=== PATIENT | female | born 1955 | race Hispanic/Latino ===

== ENCOUNTER 2016-12-15 10:14 | Inpatient (IN) | payer MEDICAID ==
--- NOTE | 2016-12-15 11:20 | C.PDOC ---
History Of Present Illness 61-year-old female, presents to the emergency department with complaints of large bump around anus for 10 days growing in size and painful. She was seen by Dr Rojas few days ago and told to see Dr Cifuentes. She states by Dr Cifuentes sent her to ED for possible surgery, was instructed to not eat after midnight and present to ER in the morning. Time Seen by Provider: 12/15/16 11:08 Chief Complaint (Nursing): Medical Clearance Past Medical History Vital Signs: Last Vital Signs Temp 97 F L 12/15/16 14:57 Pulse 78 12/15/16 14:57 Resp 9 L 12/15/16 14:57 BP 119/57 L 12/15/16 14:57 Pulse Ox 97 12/15/16 14:57 - Medical History PMH: Diabetes, HTN, Hypercholesterolemia Surgical History: Coronary Stent Family History: States: Unknown Family Hx Review Of Systems Except As Marked, All Systems Reviewed And Found Negative. Constitutional: Negative for: Fever, Chills Cardiovascular: Negative for: Chest Pain Respiratory: Negative for: Shortness of Breath Gastrointestinal: Negative for: Nausea, Vomiting Physical Exam - Physical Exam Appears: Non-toxic, No Acute Distress, Other (anxious) Skin: Warm, Dry, No Rash Oral Mucosa: Moist Lips: Normal Appearing Neck: Normal ROM Cardiovascular: Rhythm Regular, No Murmur Respiratory: Normal Breath Sounds, No Accessory Muscle Use Gastrointestinal/Abdominal: Soft, No Tenderness Rectal: Other (1x2cm tender erythematous fluctuant mass to left perianal region with surrounding swelling, no blood or discharge. ) Extremity: Normal ROM ED Course And Treatment - Laboratory Results Result Diagrams: 12/15/16 11:42 12/15/16 11:42 O2 Sat by Pulse Oximetry: 100 Medical Decision Making Medical Decision Making: Impression rectal mass Plan: * CMP * CBC, PTT, PT * Ciprofloxacin, Morphine, Metronidazole * Blood/Urine Culture * Urinalysis Reassess and Disposition Dr Cifuentes evaluates patient in the ED and requests admission to DR Matta service and to order antibiotics Patient states she is available to Brandie Murphy ordered Contact Dr Rojas and discuss case and accepts admission Disposition - Disposition Disposition: HOSPITALIZED Disposition Time: 12:29 Condition: STABLE - POA Present On Arrival: None - Clinical Impression Clinical Impression: Sejal-rectal abscess Decision To Admit - Pt Status Changed To: Hospital Disposition Of: Inpatient - Admit Certification Admit to Inpatient:: After my assessment, the patient will require hospitalization for at least two midnights. This is because of the severity of symptoms shown, intensity of services needed, and/or the medical risk in this patient being treated as an outpatient. - InPatient: Physician Admission Certification: I certify that this patient requires 2 or more midnights of care for the following reason:: Patient with perirectal abscess and will need surgical consult with Dr Cifuentes - . Bed Request Type: Regular Admitting Physician: Cisco Rojas Patient Diagnosis: Sejal-rectal abscess
[2016-12-15 11:49] LABS: BASO % 0.6 % (0.0-2.0); EOS # 0.2 K/uL (0.0-0.7); EOS % 3.5 % (0.0-4.0); HEMATOCRIT 38.7 % (34.0-47.0); LYMPH # 2.2 K/uL (1.0-4.3); MEAN CELL VOLUME 91.2 fL (81.0-99.0); MEAN PLATELET VOLUME 7.9 fL (7.2-11.7); MONO # 0.5 K/uL (0.0-0.8); MONO % 7.9 % (0.0-10.0); RED CELL DISTRIBUTION WIDTH 13.3 % (11.5-14.5); WHITE BLOOD COUNT 5.9 K/uL (4.8-10.8)
[2016-12-15 11:57] LABS: CHLORIDE 101 mmol/L (98-107); POTASSIUM 3.9 mmol/L (3.6-5.2); SODIUM 137 mmol/L (132-148)
[2016-12-15 11:59] LABS: GFR AFRICAN-AMERICAN > 60
[2016-12-15 12:00] LABS: ALB/GLOB RATIO 1.1 (1.0-2.1); ALKALINE PHOSPHATASE 58 U/L (38-126); ALT/SGPT 41 U/L (9-52); AST/SGOT 31 U/L (14-36); BILIRUBIN,TOTAL 0.6 mg/dL (0.2-1.3); BLOOD UREA NITROGEN 16 mg/dL (7-17); CARBON DIOXIDE 24 mmol/L (22-30); GLUCOSE,RANDOM 148 mg/dL (65-105); TOTAL PROTEIN 7.8 g/dL (6.3-8.3)
[2016-12-15] MEDS ORDERED: Ciprofloxacin 400mg/200ml D5W 400 MG/200 ML BAG IVPB STA (12:16)
[2016-12-15] MEDS ORDERED: metroNIDAZOLE IV 500 mg/100 ml 500 MG/100 ML BAG IVPB STA (12:16)
[2016-12-15] MEDS ORDERED: metroNIDAZOLE IV 500 mg/100 ml 500 MG/100 ML BAG ONE (12:29)
[2016-12-15] MEDS ORDERED: Ciprofloxacin 400mg/200ml D5W 0 MG/0 ML BAG IVPB ONE (12:30)
[2016-12-15 12:41] LABS: RBC URINE < 1 /hpf (0-3); URINE BILIRUBIN NEGATIVE (NEGATIVE); URINE BLOOD NEGATIVE (NEGATIVE); URINE COLOR Yellow (YELLOW); URINE GLUCOSE (UA) 1+ mg/dL (Normal); URINE KETONE NEGATIVE (NEGATIVE); URINE LEUKOCYTE ESTERASE NEG Leu/uL (Negative); URINE PROTEIN NEGATIVE (NEGATIVE); URINE UROBILINOGEN NORMAL mg/dL (0.2-1.0); WBC URINE 1 /hpf (0-5)
[2016-12-15] MEDS ORDERED: Lactated Ringer's 1,000 ML IV ONE (14:19)
[2016-12-15] MEDS ORDERED: Propofol 10 mg/ml Inj (20 ML) ONE (14:20)
[2016-12-15] MEDS ORDERED: Midazolam 2 MG/2 ML VIAL ONE (14:20)
[2016-12-15] MEDS ORDERED: HYDROmorphone 0.5 mg/0.5 ml ISec IVP PRN (14:56)
--- NOTE | 2016-12-15 16:34 | OP ---
PROCEDURE DATE: 12/15/2016 PREOPERATIVE DIAGNOSIS: Rectal abscess with fistula. POSTOPERATIVE DIAGNOSIS: Rectal abscess with fistula. PROCEDURE PERFORMED: Incision and drainage of perirectal abscess with fistulotomy. SURGEON: Albert Cifuentes MD ANESTHESIA: General. ESTIMATED BLOOD LOSS: 30 mL. POSTOPERATIVE CONDITION: Stable. INDICATIONS FOR SURGERY: A 61-year-old female who presents with a rectal abscess and fistula, who wa s taken to the OR the day of admission for drainage. GROSS FINDINGS: There was a fistula at the 5 o'clock level which extended into the midline of the re ctum consistent with Goodsall's rule. It extended somewhat proximally into the pelvis and the draina ge was extensive and involved the pelvic drainage also. PROCEDURE: The patient taken to the operating room. General anesthesia administered. He was placed in lithotomy position. The rectal area was prepped and draped. A probe was placed through the recta l fistula into the midline posteriorly. The anus and the overlying tissue was divided. Pus was drai frantz and cultured. A pocket near the ischiorectal area was also drained in the pelvis. The wound was then irrigated with copious amounts of saline solution. A persistently bleeding rectal blood vessel was repaired. A partial tissue transfer closure was performed and the central portion was packed op en with saline gauze. The patient tolerated procedure well, returned to recovery room in stable cond ition. Albert Cifuentes MD cc: [id number] TT: 12/15/2016 16:33:38 sn
[2016-12-15 17:01] VITALS: RESP 20
[2016-12-15] MEDS: Lactated Ringer's 1,000 ML IV SCH (18:34)
[2016-12-15] MEDS: (Novolog) Insulin Aspart, Recombinant 100 u/ml 10 ml vial SC SCH (22:19)
[2016-12-15] MEDS: Clindamycin 600mg/50ml D5W 600 MG/50 ML VIAL IVPB SCH (22:28)
[2016-12-15] MEDS: Oxycodone/Acetaminophen 5/325 mg Tab PO PRN (23:00)
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
[2016-12-16] MEDS: Lactated Ringer's 1,000 ML IV SCH ×3 (05:00→14:30)
[2016-12-16] MEDS: Clindamycin 600mg/50ml D5W 600 MG/50 ML VIAL IVPB SCH ×3 (05:34→22:39)
[2016-12-16] MEDS: Oxycodone/Acetaminophen 5/325 mg Tab PO PRN (06:29)
[2016-12-16] MEDS: Enoxaparin 40 mg Syringe SC SCH (09:45)
[2016-12-16] MEDS: (Novolog) Insulin Aspart, Recombinant 100 u/ml 10 ml vial SC SCH ×4 (09:48→22:52)
--- NOTE | 2016-12-16 23:35 | CP.PCM.PN ---
Subjective - Date & Time of Evaluation Date of Evaluation: 12/16/16 Time of Evaluation: 21:00 - Subjective Subjective: Pt seen & examined, s/p I and D of rectal abscess, comlaiing of constipation, is feeling better Objective - Vital Signs/Intake and Output Vital Signs (last 24 hours): Temp Pulse Resp BP Pulse Ox 98.2 F 74 20 113/71 95 12/16/16 15:53 12/16/16 15:53 12/16/16 15:53 12/16/16 15:53 12/16/16 15:53 Intake and Output: 12/16/16 12/17/16 18:59 06:59 Intake Total 800 Balance 800 - Medications Medications: Current Medications Alprazolam (Xanax) 1 mg PO TID [facility] Last Admin: 12/16/16 22:51 Dose: 1 mg Aspirin (Aspirin Chewable) 81 mg PO [facility] Last Admin: 12/16/16 22:40 Dose: 81 mg Clopidogrel Bisulfate (Plavix) 75 mg PO DAILY [facility] Last Admin: 12/16/16 09:44 Dose: 75 mg Ezetimibe (Zetia) 10 mg PO [facility] Last Admin: 12/16/16 22:40 Dose: 10 mg Enoxaparin Sodium (Lovenox) 40 mg SC DAILY [facility] Last Admin: 12/16/16 09:45 Dose: 40 mg Gabapentin (Neurontin) 300 mg PO TID [facility] Last Admin: 12/16/16 19:06 Dose: 300 mg Clindamycin Phosphate (Cleocin) 600 mg in 50 mls @ 100 mls/hr IVPB Q8H [facility] Last Admin: 12/16/16 22:39 Dose: 100 mls/hr Lactated Ringer's (Lactated Ringer's) 1,000 mls @ 100 mls/hr IV .Q10H [facility] Last Admin: 12/16/16 14:30 Dose: Not Given Insulin Aspart (Novolog) 0 unit SC [facility] PRN Reason: Protocol Last Admin: 12/16/16 22:52 Dose: Not Given Lactulose (Enulose) 20 gm PO [facility] Last Admin: 12/16/16 22:39 Dose: 20 gm Lisinopril (Zestril) 5 mg PO BID [facility] Last Admin: 12/16/16 22:52 Dose: 5 mg Metformin HCl (Glucophage) 500 mg PO BID [facility] Last Admin: 12/16/16 19:07 Dose: 500 mg Ondansetron HCl (Zofran Inj) 4 mg IVP ONCE PRN PRN Reason: nausea Last Admin: 12/15/16 16:11 Dose: 4 mg Oxycodone/Acetaminophen (Percocet 5/325 Mg Tab) 1 tab PO Q4H PRN PRN Reason: Pain, moderate (4-7) Stop: 12/18/16 20:36 Last Admin: 12/16/16 06:29 Dose: 1 tab Pneumococcal Polyvalent Vaccine (Pneumovax 23 Vaccine) 0.5 ml IM .ONCE ONE Stop: 12/17/16 10:01 Tramadol HCl (Ultram) 50 mg PO TID [facility] Last Admin: 12/16/16 19:09 Dose: 50 mg - Labs Labs: PT 11.5 SECONDS (9.7-12.2) 12/15/16 11:42 INR 1.0 12/15/16 11:42 APTT 30 SECONDS (21-34) 12/15/16 11:42 - Constitutional Appears: No Acute Distress - Eye Exam Eye Exam: EOMI, Normal appearance, PERRL Pupil Exam: NORMAL ACCOMODATION, PERRL - ENT Exam ENT Exam: Mucous Membranes Moist, Normal Exam - Cardiovascular Exam Cardiovascular Exam: REGULAR RHYTHM, +S1, +S2. absent: Murmur - GI/Abdominal Exam GI & Abdominal Exam: Soft, Normal Bowel Sounds. absent: Tenderness - Rectal Exam Rectal Exam: Deferred - Neurological Exam Neurological Exam: Alert, Awake, CN II-XII Intact, Normal Gait, Oriented x3 Assessment and Plan (1) Constipation Assessment & Plan: lactulose Status: Acute (2) Diabetes Status: Acute (3) HTN (hypertension) Status: Acute (4) Sejal-rectal abscess Assessment & Plan: s/p I and D Status: Acute
[2016-12-17] MEDS: Lactated Ringer's 1,000 ML IV SCH (00:30)
[2016-12-17 01:45] VITALS: O2SAT 96
[2016-12-17] MEDS: Clindamycin 600mg/50ml D5W 600 MG/50 ML VIAL IVPB SCH (05:39)
[2016-12-17] MEDS: (Novolog) Insulin Aspart, Recombinant 100 u/ml 10 ml vial SC SCH ×2 (08:28→12:30)
[2016-12-17 08:31] VITALS: BP 101/59; PULSE 68; TEMP 98
[2016-12-17] MEDS ORDERED: Pneumococcal 23-Valent Vaccine IM ONE (10:00)
[2016-12-17] MEDS: Enoxaparin 40 mg Syringe SC SCH (10:15)
--- NOTE | 2016-12-17 17:38 | CP.PCM.PN ---
Subjective - Date & Time of Evaluation Date of Evaluation: 12/17/16 Time of Evaluation: 11:00 - Subjective Subjective: Alert, oriented, NAD. Objective - Vital Signs/Intake and Output Vital Signs (last 24 hours): Temp Pulse Resp BP Pulse Ox 98 F 68 20 101/59 L 96 12/17/16 08:27 12/17/16 08:27 12/17/16 08:27 12/17/16 08:27 12/17/16 08:27 Intake and Output: 12/17/16 12/17/16 06:59 18:59 Intake Total 250 Balance 250 - Medications Medications: Current Medications Alprazolam (Xanax) 1 mg PO TID [facility] Last Admin: 12/17/16 10:20 Dose: 1 mg Aspirin (Aspirin Chewable) 81 mg PO [facility] Last Admin: 12/16/16 22:40 Dose: 81 mg Clopidogrel Bisulfate (Plavix) 75 mg PO DAILY [facility] Last Admin: 12/17/16 10:15 Dose: 75 mg Ezetimibe (Zetia) 10 mg PO [facility] Last Admin: 12/16/16 22:40 Dose: 10 mg Enoxaparin Sodium (Lovenox) 40 mg SC DAILY [facility] Last Admin: 12/17/16 10:15 Dose: 40 mg Gabapentin (Neurontin) 300 mg PO TID [facility] Last Admin: 12/17/16 10:14 Dose: 300 mg Clindamycin Phosphate (Cleocin) 600 mg in 50 mls @ 100 mls/hr IVPB Q8H [facility] Last Admin: 12/17/16 05:39 Dose: 100 mls/hr Lactated Ringer's (Lactated Ringer's) 1,000 mls @ 100 mls/hr IV .Q10H [facility] Last Admin: 12/17/16 00:30 Dose: Not Given Insulin Aspart (Novolog) 0 unit SC [facility] PRN Reason: Protocol Last Admin: 12/17/16 12:30 Dose: Not Given Lactulose (Enulose) 20 gm PO [facility] Last Admin: 12/16/16 22:39 Dose: 20 gm Lisinopril (Zestril) 5 mg PO BID [facility] Last Admin: 12/17/16 10:15 Dose: 5 mg Metformin HCl (Glucophage) 500 mg PO BID [facility] Last Admin: 12/17/16 10:15 Dose: 500 mg Ondansetron HCl (Zofran Inj) 4 mg IVP ONCE PRN PRN Reason: nausea Last Admin: 12/15/16 16:11 Dose: 4 mg Oxycodone/Acetaminophen (Percocet 5/325 Mg Tab) 1 tab PO Q4H PRN PRN Reason: Pain, moderate (4-7) Stop: 12/18/16 20:36 Last Admin: 12/16/16 06:29 Dose: 1 tab Tramadol HCl (Ultram) 50 mg PO TID [facility] Last Admin: 12/17/16 10:20 Dose: 50 mg - Labs Labs: PT 11.5 SECONDS (9.7-12.2) 12/15/16 11:42 INR 1.0 12/15/16 11:42 APTT 30 SECONDS (21-34) 12/15/16 11:42 Assessment and Plan - Assessment and Plan (Free Text) Assessment: Patient is seen and examined. Ambulating, alert, orientedx3. Cleared by surgery. Instructed for sitz bath and po antibiotics to continue as ordered. [facility], home care to f/u on the wound care. D/W DR Rojas, agreed with the plan.
--- NOTE | 2016-12-17 23:04 | CP.PCM.DIS ---
Provider - Provider Date of Admission: 12/15/16 12:29 Attending physician: Cisco Rojas MD Time Spent in preparation of Discharge (in minutes): 24 Diagnosis - Discharge Diagnosis (1) Constipation Status: Acute (2) Diabetes Status: Acute (3) HTN (hypertension) Status: Acute (4) Sejal-rectal abscess Status: Acute Hospital Course - Lab Results Lab Results: Micro Results 12/15/16 Unknown Rectum Gram Stain - Final 12/15/16 Unknown Rectum Wound Culture - Preliminary No growth. Most Recent Lab Values WBC 5.9 K/uL (4.8-10.8) 12/15/16 11:42 RBC 4.24 Mil/uL (3.80-5.20) 12/15/16 11:42 Hgb 13.1 g/dL (11.0-16.0) 12/15/16 11:42 Hct 38.7 % (34.0-47.0) 12/15/16 11:42 MCV 91.2 fL (81.0-99.0) 12/15/16 11:42 MCH 31.0 pg (27.0-31.0) 12/15/16 11:42 MCHC 34.0 g/dL (33.0-37.0) 12/15/16 11:42 RDW 13.3 % (11.5-14.5) 12/15/16 11:42 Plt Count 252 K/uL (130-400) 12/15/16 11:42 MPV 7.9 fL (7.2-11.7) 12/15/16 11:42 Neut % (Auto) 51.0 % (50.0-75.0) 12/15/16 11:42 Lymph % (Auto) 37.0 % (20.0-40.0) 12/15/16 11:42 Dunn % (Auto) 7.9 % (0.0-10.0) 12/15/16 11:42 Eos % (Auto) 3.5 % (0.0-4.0) 12/15/16 11:42 Baso % (Auto) 0.6 % (0.0-2.0) 12/15/16 11:42 Neut # 3.0 K/uL (1.8-7.0) 12/15/16 11:42 Lymph # 2.2 K/uL (1.0-4.3) 12/15/16 11:42 Dunn # 0.5 K/uL (0.0-0.8) 12/15/16 11:42 Eos # 0.2 K/uL (0.0-0.7) 12/15/16 11:42 Baso # 0.0 K/uL (0.0-0.2) 12/15/16 11:42 PT 11.5 SECONDS (9.7-12.2) 12/15/16 11:42 INR 1.0 12/15/16 11:42 APTT 30 SECONDS (21-34) 12/15/16 11:42 Sodium 137 mmol/L (132-148) 12/15/16 11:42 Potassium 3.9 mmol/L (3.6-5.2) 12/15/16 11:42 Chloride 101 mmol/L (98-107) 12/15/16 11:42 Carbon Dioxide 24 mmol/L (22-30) 12/15/16 11:42 Anion Gap 16 (10-20) 12/15/16 11:42 BUN 16 mg/dL (7-17) 12/15/16 11:42 Creatinine 0.5 MG/DL (0.7-1.2) L 12/15/16 11:42 Est GFR ( Amer) > 60 12/15/16 11:42 Est GFR (Non-Af Amer) > 60 12/15/16 11:42 POC Glucose (mg/dL) 133 mg/dL (65-110) H 12/17/16 12:12 Random Glucose 148 mg/dL (65-105) H 12/15/16 11:42 Calcium 9.0 mg/dl (8.6-10.4) 12/15/16 11:42 Total Bilirubin 0.6 mg/dL (0.2-1.3) 12/15/16 11:42 AST 31 U/L (14-36) 12/15/16 11:42 ALT 41 U/L (9-52) 12/15/16 11:42 Alkaline Phosphatase 58 U/L (38-126) 12/15/16 11:42 Total Protein 7.8 g/dL (6.3-8.3) 12/15/16 11:42 Albumin 4.0 g/dL (3.5-5.0) 12/15/16 11:42 Globulin 3.8 gm/dL (2.2-3.9) 12/15/16 11:42 Albumin/Globulin Ratio 1.1 (1.0-2.1) 12/15/16 11:42 Urine Color Yellow (YELLOW) 12/15/16 12:10 Urine Clarity Clear (Clear) 12/15/16 12:10 Urine pH 5.0 (5.0-8.0) 12/15/16 12:10 Ur Specific [place] 1.021 (1.003-1.030) 12/15/16 12:10 Urine Protein Negative mg/dL (NEGATIVE) 12/15/16 12:10 Urine Glucose (UA) 1+ mg/dL (Normal) 12/15/16 12:10 Urine Ketones Negative mg/dL (NEGATIVE) 12/15/16 12:10 Urine Blood Negative (NEGATIVE) 12/15/16 12:10 Urine Nitrate Negative (NEGATIVE) 12/15/16 12:10 Urine Bilirubin Negative (NEGATIVE) 12/15/16 12:10 Urine Urobilinogen Normal mg/dL (0.2-1.0) 12/15/16 12:10 Ur Leukocyte Esterase Neg Herlinda/uL (Negative) 12/15/16 12:10 Urine WBC (Auto) 1 /hpf (0-5) 12/15/16 12:10 Urine RBC (Auto) < 1 /hpf (0-3) 12/15/16 12:10 - Hospital Course Hospital Course: Patient is seen and examined. Ambulating, alert, orientedx3. Cleared by surgery. Instructed for sitz bath and po antibiotics to continue as ordered. [facility] home care to f/u on the wound care, pt is stable for discharge home Discharge Exam - Head Exam Head Exam: ATRAUMATIC, NORMAL INSPECTION, NORMOCEPHALIC - Eye Exam Eye Exam: EOMI, Normal appearance, PERRL Pupil Exam: NORMAL ACCOMODATION, PERRL - ENT Exam ENT Exam: Mucous Membranes Moist - Respiratory Exam Respiratory Exam: Clear to PA & Lateral, NORMAL BREATHING PATTERN - Cardiovascular Exam Cardiovascular Exam: REGULAR RHYTHM, +S1, +S2 - GI/Abdominal Exam GI & Abdominal Exam: Normal Bowel Sounds - Rectal Exam Additional comments: s/p surgery Discharge Plan - Discharge Medications Prescriptions: Metronidazole [Flagyl] 250 mg PO TID #30 tablet traMADol [Ultram] 50 mg PO Q8H PRN #20 tab NS PRN Reason: Pain, Severe (8-10) - Follow Up Plan Condition: STABLE Disposition: HOME/ ROUTINE Instructions: Acute Wound Care (DC), Rectal Fistulotomy (DC), Incision and Drainage (DC), Rectal Abscess (DC), Rectal Abscess (GEN) Additional Instructions: Actvity and diet as tolerated printed instructions given SEE POST-OPERATIVE INSTRUCTIONS. Referrals: Albert Cifuentes MD [Staff Provider] -
== END 2016-12-17 18:59 | disposition home or self-care (01) | DRG 153 ==
LOC: C.ER 10:14 → C.9E 12:29 → C.6T 16:47
PROVIDERS: ADMIT Internal Medicine; ATTEND Internal Medicine
PROC: 0D9P0ZZ Drainage of Rectum, Open Approach (ICD-10-PCS; 2016-12-15)
PROC: 0HX9XZZ Transfer Perineum Skin, External Approach (ICD-10-PCS; 2016-12-15)
PROC: 0D9Q0ZZ Drainage of Anus, Open Approach (ICD-10-PCS; principal; 2016-12-15 13:00)
DX: K61.2 Anorectal abscess (principal); I10 Essential (primary) hypertension; E78.00 Pure hypercholesterolemia, unspecified; J45.909 Unspecified asthma, uncomplicated; E11.9 Type 2 diabetes mellitus without complications; F17.210 Nicotine dependence, cigarettes, uncomplicated; Z95.5 Presence of coronary angioplasty implant and graft; Z79.4 Long term (current) use of insulin

== ENCOUNTER 2017-07-28 19:06 | Emergency (ER) | payer MEDICAID ==
[2017-07-28 19:43] VITALS: TEMP 99.7
--- NOTE | 2017-07-28 21:06 | C.PDOC ---
History Of Present Illness 62 year old female presents to the ED c/o swelling of the neck that has been on and off for the past few weeks. Patient is also c/o occasional cough as well. Patient denies fever, chills, nausea, vomit, diarrhea, abdominal pain, headache , back pain. Chief Complaint (Nursing): Medical Clearance History Per: Patient History/Exam Limitations: no limitations Onset/Duration Of Symptoms: Days Current Symptoms Are (Timing): Still Present Recent travel outside of the [place]: No Additional History Per: Patient Past Medical History Reviewed: Historical Data, Nursing Documentation, Vital Signs Vital Signs: Last Vital Signs Temp 99.7 F H 07/28/17 19:37 Pulse 80 07/28/17 23:13 Resp 20 07/28/17 23:13 BP 110/70 07/28/17 23:13 Pulse Ox 97 07/28/17 23:13 - Medical History PMH: Anemia, Anxiety, Arthritis, Asthma, Diabetes, Gastritis, HTN, Hypercholesterolemia, Hypothyroidism (from 16 to 53 yrs old), Pneumonia Denies: Chronic Kidney Disease Surgical History: Coronary Stent - [facility] Procedures DRAINAGE OF ANUS, OPEN APPROACH (12/15/16) DRAINAGE OF RECTUM, OPEN APPROACH (12/15/16) TRANSFER PERINEUM SKIN, EXTERNAL APPROACH (12/15/16) Family History: States: Unknown Family Hx - Social History Hx Alcohol Use: No Hx Substance Use: No - Immunization History Hx Tetanus Toxoid Vaccination: No Hx Influenza Vaccination: No Hx Pneumococcal Vaccination: No Review Of Systems Constitutional: Negative for: Fever, Chills Cardiovascular: Negative for: Chest Pain Respiratory: Negative for: Cough, Shortness of Breath Gastrointestinal: Negative for: Nausea, Vomiting, Abdominal Pain Musculoskeletal: Positive for: Neck Pain Skin: Negative for: Rash Neurological: Negative for: Weakness, Numbness Physical Exam - Physical Exam Appears: Non-toxic, No Acute Distress Skin: Normal Color, Warm, Dry Head: Atraumatic, Normacephalic Eye(s): bilateral: Normal Inspection Nose: No Discharge, No Deformity Oral Mucosa: Moist Neck: Normal ROM, Supple, No Other (cerival nodes enlargement ) Lymphatic: No Axilla Node Tenderness Chest: Symmetrical, Other (breast exam normal) Cardiovascular: Rhythm Regular, No Murmur Respiratory: No Rales, Rhonchi (occasional), No Wheezing Gastrointestinal/Abdominal: Soft, No Tenderness, No Guarding, No Rebound Extremity: Normal ROM, No Deformity, No Swelling Neurological/Psych: Oriented x3, Normal Speech, Normal Cognition Gait: Steady ED Course And Treatment - Laboratory Results Result Diagrams: 07/28/17 21:40 07/28/17 21:40 O2 Sat by Pulse Oximetry: 99 (On RA) Pulse Ox Interpretation: Normal Medical Decision Making Medical Decision Making: Impression : neck swelling Plan: * CT neck, chest * Labs Disposition - Disposition Disposition: AGAINST MEDICAL ADVICE Disposition Time: 23:30 Condition: STABLE Forms: [facility] ([place]) - POA Present On Arrival: None - Clinical Impression Clinical Impression: Neck pain, Lymphadenopathy - Scribe Statement The provider has reviewed the documentation as recorded by the Scribe Warner Norris All medical record entries made by the Scribe were at my direction and personally dictated by me. I have reviewed the chart and agree that the record accurately reflects my personal performance of the history, physical exam, medical decision making, and the department course for this patient. I have also personally directed, reviewed, and agree with the discharge instructions and disposition.
--- NOTE | 2017-07-28 21:08 | C.PDOC ---
History Of Present Illness DUPLICATE CHART, Chief Complaint (Nursing): Medical Clearance Past Medical History Vital Signs: Last Vital Signs Temp 99.7 F H 07/28/17 19:37 Pulse 80 07/28/17 23:13 Resp 20 07/28/17 23:13 BP 110/70 07/28/17 23:13 Pulse Ox 99 07/29/17 02:49 - Medical History PMH: Anemia, Anxiety, Arthritis, Asthma, Diabetes, Gastritis, HTN, Hypercholesterolemia, Hypothyroidism (from 16 to 53 yrs old), Pneumonia Denies: Chronic Kidney Disease Surgical History: Coronary Stent - [facility] Procedures DRAINAGE OF ANUS, OPEN APPROACH (12/15/16) DRAINAGE OF RECTUM, OPEN APPROACH (12/15/16) TRANSFER PERINEUM SKIN, EXTERNAL APPROACH (12/15/16) Family History: States: Unknown Family Hx - Social History Hx Alcohol Use: No Hx Substance Use: No - Immunization History Hx Tetanus Toxoid Vaccination: No Hx Influenza Vaccination: No Hx Pneumococcal Vaccination: No ED Course And Treatment - Laboratory Results Result Diagrams: 07/28/17 21:40 07/28/17 21:40 O2 Sat by Pulse Oximetry: 99 Disposition - Disposition Disposition: AGAINST MEDICAL ADVICE Condition: STABLE Forms: [facility] ([place]) - Clinical Impression Clinical Impression: Neck pain, Lymphadenopathy
[2017-07-28 21:49] LABS: BASO # 0.1 K/uL (0.0-0.2); BASO % 1.1 % (0.0-2.0); EOS # 0.4 K/uL (0.0-0.7); EOS % 5.9 % (0.0-4.0); LYMPH # 1.4 K/uL (1.0-4.3); LYMPH % 23.8 % (20.0-40.0); MEAN CORPUSCULAR HEMOGLOBIN 30.1 pg (27.0-31.0); MEAN CORPUSCULAR HGB CONC 34.6 g/dL (33.0-37.0); MEAN PLATELET VOLUME 7.8 fL (7.2-11.7); MONO # 0.5 K/uL (0.0-0.8); MONO % 9.2 % (0.0-10.0); NEUT # 3.6 K/uL (1.8-7.0); NRBC % 0.2 % (0.0-2.0); RBC 3.58 Mil/uL (3.80-5.20); RED CELL DISTRIBUTION WIDTH 14.3 % (11.5-14.5)
[2017-07-28 21:52] LABS: HEMOGLOBIN 10.8 g/dL (11.0-16.0)
[2017-07-28 21:57] LABS: INR 1.1; PROTHROMBIN TIME 12.9 SECONDS (9.7-12.2)
[2017-07-28 22:01] LABS: ALB/GLOB RATIO 0.9 (1.0-2.1); ALBUMIN 3.6 g/dL (3.5-5.0); CALCIUM 9.3 mg/dl (8.6-10.4); GFR AFRICAN-AMERICAN > 60; GFR NON-AFRICAN AMERICAN > 60
[2017-07-28 22:09] LABS: ALT/SGPT 21 U/L (9-52); AST/SGOT 47 U/L (14-36); BLOOD UREA NITROGEN 20 mg/dL (7-17)
[2017-07-28 23:53] VITALS: BP 110/70; PULSE 80; RESP 20
--- NOTE | 2017-07-29 00:14 | CT ---
EXAM: CT Neck Without Intravenous Contrast CLINICAL HISTORY: 62 years old, female; Pain; Neck pain; Additional info: Cervical nodes/ cough TECHNIQUE: Axial computed tomography images of the neck without intravenous contrast. All CT scans at this facility use one or more dose reduction techniques, viz.: automated exposure control; ma/kV adjustment per patient size (including targeted exams where dose is matched to indication; i.e. head); or iterative reconstruction technique. Coronal and sagittal reformatted images were created and reviewed. COMPARISON: No relevant prior studies available. FINDINGS: Limitations: Lack of intravenous contrast. Nasopharynx: Unremarkable. Oropharynx: No significant tonsillar enlargement. Hypopharynx: Unremarkable. Larynx: Unremarkable. Normal epiglottis. Trachea: Unremarkable. Retropharyngeal space: Unremarkable. Submandibular/parotid glands: Glands are normal in size. Thyroid: 1.3 x 1.0 x 1.2 cm peripherally calcified cyst or nodule within right lobe. Tiny calcification within left lobe. Bones/joints: Degenerative changes of spine. No acute fracture. Soft tissues: Unremarkable. Vasculature: Mild atherosclerotic disease. Lymph nodes: Multiple lymph nodes throughout neck and supraclavicular regions, up to 1.6 cm short axis. Sinuses: Postsurgical changes. Lung apices: See chest CT report. IMPRESSION: 1. Cervical lymphadenopathy. Clinical correlation is needed. 2. Incidental/non-acute findings are described above.
--- NOTE | 2017-07-29 00:25 | CT ---
EXAM: CT Chest Without Intravenous Contrast CLINICAL HISTORY: 62 years old, female; Pain; Chest pain TECHNIQUE: Axial computed tomography images of the chest without intravenous contrast. All CT scans at this facility use one or more dose reduction techniques, viz.: automated exposure control; ma/kV adjustment per patient size (including targeted exams where dose is matched to indication; i.e. head); or iterative reconstruction technique. Coronal and sagittal reformatted images were created and reviewed. COMPARISON: No relevant prior studies available. FINDINGS: Limitations: Lack of intravenous contrast. Lungs: No consolidation. Early emphysematous changes. Few pulmonary nodules, up to 0.5 cm. Pleural space: No pneumothorax. No significant effusion. Heart: No cardiomegaly. No significant pericardial effusion. Coronary artery calcifications. Bones/joints: Degenerative changes of spine. No acute fracture. Soft tissues: Unremarkable. Vasculature: Mild atherosclerotic disease. No aneurysm. Lymph nodes: Several axillary lymph nodes, up to 2.4 cm short axis. Several mediastinal lymph nodes, up to 1.6 cm short axis. Several hilar lymph nodes, suboptimally evaluated due to lack of intravenous contrast. Several lymph nodes within cardiophrenic angles, up to 1.0 cm short axis. Multiple lymph nodes within upper abdomen/retroperitoneum, up to 2.0 cm short axis. Spleen: Mildly enlarged, 13.0 cm. Adrenals: Mild hypertrophy of adrenal glands. Subcentimeter nodule within medial limb of right adrenal gland. Kidneys and ureters: Mild stranding about left kidney, nonspecific. Other findings: See neck CT report for additional details. IMPRESSION: 1. Thoracic and abdominal lymphadenopathy. Clinical correlation is needed. 2. Pulmonary nodules. For low-risk patients, no follow-up is necessary. For high-risk patients (smoking history or other known risk factors) an optional CT at 12 months could be performed. 3. Incidental/non-acute findings are described above.
[2017-07-29 02:50] VITALS: O2SAT 99
== END 2017-07-28 23:53 | disposition left against medical advice (07) ==
LOC: C.ER 19:06
DX: M54.2 Cervicalgia (principal); R59.1 Generalized enlarged lymph nodes; I10 Essential (primary) hypertension; E11.9 Type 2 diabetes mellitus without complications; E78.00 Pure hypercholesterolemia, unspecified; F17.210 Nicotine dependence, cigarettes, uncomplicated

== ENCOUNTER → 2017-08-07 12:23 | Emergency (ER) | payer MEDICAID ==
[2017-08-07 12:23] VITALS: BMI 33.7
== END | disposition left against medical advice (07) ==
LOC: C.ER 12:23
DX: Z02.89 Encounter for other administrative examinations (principal)

== ENCOUNTER 2017-08-09 09:56 | Day surgery (SDC) | payer MEDICAID ==
[2017-08-04 13:59] VITALS: BMI 33.7
[2017-08-09] MEDS ORDERED: Propofol 10 mg/ml Inj (20 ML) ONE (12:40)
[2017-08-09] MEDS ORDERED: Midazolam 2 MG/2 ML VIAL ONE (12:51)
[2017-08-09] MEDS ORDERED: Doxycycline 100 mg Inj ONE (12:54)
[2017-08-09] MEDS ORDERED: Lidocaine 1% Inj (20ml) ONE (12:55)
[2017-08-09] MEDS ORDERED: Bupivacaine HCl 0.5% PF (10 ml) Inj ONE ×2 (12:55)
[2017-08-09] MEDS ORDERED: Lidocaine Hydrochloride 5 ML INJ ONE (13:13)
[2017-08-09] MEDS ORDERED: HYDROmorphone 0.5 mg/0.5 ml ISec IVP PRN (13:41)
[2017-08-09] MEDS ORDERED: Oxycodone/Acetaminophen 5/325 mg Tab PO PRN (14:00)
[2017-08-09 15:11] VITALS: BP 106/75; PULSE 99; RESP 21; TEMP 97.4; O2SAT 98
--- NOTE | 2017-08-09 19:03 | OP ---
PROCEDURE DATE: 08/09/2017 PREOPERATIVE DIAGNOSIS: Left neck mass. POSTOPERATIVE DIAGNOSIS: Left neck mass. PROCEDURE PERFORMED: Wide deep excision of neck mass with advancement flap closure. SURGEON: Albert Cifuentes MD TYPE OF ANESTHESIA: General. BLOOD LOSS: 30 mL. POSTOP CONDITION: Stable. DESCRIPTION OF PROCEDURE: The patient was taken to the operating room, general anesthesia administered and the left neck was prepped and draped. An elliptical incision was made surrounding the mass at the base of the neck and was dissected free into the deep fascial layer. Bleeding was controlled using the Bovie and exposed blood vessel was repaired. Full-thickness tissue flap was created and advancement flap closure was performed with multiple layers of Monocryl, subcuticular Monocryl, and glue. Patient tolerated the procedure well and returned to recovery room in stable condition. Albert Cifuentes MD
== END 2017-08-09 14:54 | disposition home or self-care (01) ==
LOC: C.SDS 09:56
PROVIDERS: ATTEND Surgery
DX: C83.31 Diffuse large B-cell lymphoma, lymph nodes of head, face, and neck (principal); R22.1 Localized swelling, mass and lump, neck; Z88.0 Allergy status to penicillin; Z91.040 Latex allergy status; Z88.4 Allergy status to anesthetic agent; Z88.1 Allergy status to other antibiotic agents; Z91.041 Radiographic dye allergy status; Z79.84 Long term (current) use of oral hypoglycemic drugs; Z79.899 Other long term (current) drug therapy; Z79.82 Long term (current) use of aspirin; Z79.02 Long term (current) use of antithrombotics/antiplatelets; M19.90 Unspecified osteoarthritis, unspecified site; I25.119 Atherosclerotic heart disease of native coronary artery with unspecified angina pectoris; Z95.5 Presence of coronary angioplasty implant and graft; E11.9 Type 2 diabetes mellitus without complications; E78.5 Hyperlipidemia, unspecified; I10 Essential (primary) hypertension; E03.9 Hypothyroidism, unspecified; I25.2 Old myocardial infarction; I09.9 Rheumatic heart disease, unspecified
CPT/HCPCS: 15650; 21556; 82948; 88307; 88342; J2250; J2405; J2704; J2765; J3010

== ENCOUNTER → 2017-08-21 | Day surgery (SDC) | payer MEDICAID ==
[2017-08-07 12:23] VITALS: BMI 33.7
[~2017-08-21] MED LIST: HEPARIN-NS 5,000 UNITS/500 ML 5,000 UNIT/500 ML BAG IV ONE; HYDROmorphone 0.5 mg/0.5 ml ISec IVP PRN; HYDROmorphone 0.5 mg/0.5 ml ISec ONE; Lactated Ringer's 1,000 ML IV ONE; Midazolam 2 MG/2 ML VIAL ONE; Oxycodone/Acetaminophen 5/325 mg Tab PO PRN; Propofol 10 mg/ml Inj (20 ML) ONE; Vancomycin 1 gm/D5W 200 ml 1 GM/200 ML BAG IVPB ONE
[2017-08-21 14:54] VITALS: O2SAT 98
[2017-08-21 14:55] VITALS: BP 110/62; PULSE 80; RESP 18; TEMP 97.6
--- NOTE | 2017-08-21 15:10 | RAD ---
Chest x-ray single frontal view History: Port-A-Cath placement. Comparison: None available. Findings: Right chest wall port with tip extending into the right SVC. Moderate venous congestion. Bilateral hilar prominence. Enlarged ectatic aorta. Cardiomegaly. Degenerative changes in the spine and shoulders. Impression: Right chest wall port with tip extending into the right SVC. Moderate venous congestion. Bilateral hilar prominence. Enlarged ectatic aorta. Cardiomegaly.
--- NOTE | 2017-08-21 15:37 | RAD ---
PROCEDURE: Intraoperative Fluoroscopy. HISTORY: LYMPHOMA FINDINGS: Fluoroscopic assistance was provided for right Port-A-Cath placement. Please refer to the operative report from ISMAEL Ellis.
--- NOTE | 2017-08-22 01:25 | OP ---
PROCEDURE DATE: 08/21/2017. PREOPERATIVE DIAGNOSIS: Non-Hodgkin's lymphoma. POSTOPERATIVE DIAGNOSIS: Non-Hodgkin's lymphoma. PROCEDURE PERFORMED: Port-A-Cath insertion. SURGEON: Albert Cifuentes MD ANESTHESIA: General. ESTIMATED BLOOD LOSS: 30 mL. POSTOP CONDITION: Stable. INDICATIONS FOR SURGERY: This is a 62-year-old female with history of a lymphoma, who will now undergo Port-A-Cath placement. DESCRIPTION OF PROCEDURE: The right neck was prepped and draped. The right internal jugular vein was cannulated and a guidewire was inserted. Subcutaneous pocket was created on the chest wall by creating superior and inferior tissue flaps. The catheter was inserted over the guidewire to the vena cava. This was confirmed fluoroscopically. The catheter which had been tunneled through the incision was then connected to the subcutaneous port which was placed in the pocket. The overlying tissue flap closure was performed with multiple layers of Monocryl, subcuticular Monocryl and glue. It was flushed with heparinized saline and found to be widely patient. The patient tolerated the procedure well, returned to recovery room in stable condition. Albert Cifuentes MD
== END | disposition home or self-care (01) ==
LOC: C.SDS 11:42
PROVIDERS: ATTEND Surgery
DX: C85.90 Non-Hodgkin lymphoma, unspecified, unspecified site (principal)
CPT/HCPCS: 36561; 71045; 82948; J1170; J2250; J2405; J2704; J2765; J3010; J3370; J7120